=== PATIENT | female | born 1980 | race Caucasian/White ===

== ENCOUNTER 2020-01-07 06:44 | Observation (INO) ==
[2020-01-07 08:56] LABS: Basophils % 0.2 %; Hematocrit 30.2 % (35.3-44.9); Hemoglobin 9.9 g/dL (11.5-15.4); Immature Granulocytes % 0.5 % (0-4); Lymphocytes # 0.9 K/mcL (0.6-4.6); Lymphocytes % 5.6 %; Mean Corpuscular HGB Conc 32.8 g/dL (31.6-35.5); Mean Corpuscular Hemoglobin 31.6 pg (28.0-33.3); Mean Corpuscular Volume 96.5 fL (83.0-100.0); Mean Platelet Volume 8.4 fL (9.4-12.4); Monocytes # 0.4 K/mcL (0.0-1.3); Monocytes % 2.1 %; Neutrophils # 15.2 K/mcL (1.6-8.9); Platelet Count 261 K/mcL (140-400); Red Blood Count 3.13 M/mcL (3.82-4.97); Red Cell Distribution Width 13.1 % (11.5-14.5); Segmented Neutrophils % 91.6 %; White Blood Count 16.6 K/mcL (4.3-11.1)
== END 2020-01-07 11:41 | disposition home or self-care (01) ==
LOC: 1NENULAB
PROVIDERS: ADMIT Student in an Organized Health Care Education/Training Program; ATTEND Student in an Organized Health Care Education/Training Program

== ENCOUNTER 2020-01-11 14:19 | Observation (INO) ==
[2020-01-11] MEDS ORDERED: Ringers Solution, Lactated 1,000 ML IVC SCH (14:45)
[2020-01-11 15:31] VITALS: BP 122/64
[2020-01-11] MEDS ORDERED: *HR* HYDROmorphone PF 0.5 MG/0.5 ML SYRINGE IVP PRN (15:37)
[2020-01-11] MEDS ORDERED: Ondansetron 4 MG/2 ML VIAL IVP PRN (15:37)
[2020-01-11] MEDS ORDERED: *HR* Midazolam HCl 2 MG/2 ML VIAL ONE (15:41)
[2020-01-11] MEDS ORDERED: Dexamethasone 4 MG/ML VIAL ONE (15:41)
[2020-01-11] MEDS ORDERED: Ondansetron 4 MG/2 ML VIAL ONE (15:41)
[2020-01-11] MEDS ORDERED: *HR* FentaNYL (PF) 250 MCG/5 ML VIAL ONE (15:41)
[2020-01-11] MEDS ORDERED: Lidocaine -MPF 2% 5 ML VIAL ONE (15:41)
[2020-01-11] MEDS ORDERED: *HR* Propofol 200 MG/20 ML VIAL IVP ONE (15:41)
[2020-01-11 15:42] LABS: Eosinophils % 2.3 %; Hemoglobin 11.2 g/dL (11.5-15.4); Immature Granulocytes % 1.7 % (0-4); Lymphocytes % 26.1 %; Mean Corpuscular HGB Conc 32.9 g/dL (31.6-35.5); Mean Corpuscular Volume 94.2 fL (83.0-100.0); Mean Platelet Volume 8.2 fL (9.4-12.4); Platelet Count 370 K/mcL (140-400); Red Blood Count 3.61 M/mcL (3.82-4.97); Red Cell Distribution Width 13.1 % (11.5-14.5); Segmented Neutrophils % 64.5 %; White Blood Count 11.7 K/mcL (4.3-11.1)
[2020-01-11 15:43] LABS: Basophils # 0.1 K/mcL (0.0-0.2); Basophils % 0.4 %; Eosinophils # 0.3 K/mcL (0.0-0.6); Lymphocytes # 3.1 K/mcL (0.6-4.6); Monocytes # 0.6 K/mcL (0.0-1.3); Neutrophils # 7.5 K/mcL (1.6-8.9)
[2020-01-11 17:03] LABS: Adenovirus Not Detected (Not Detect); Coronavirus 229E Not Detected (Not Detect); Coronavirus HKU1 Not Detected (Not Detect); Coronavirus NL63 Not Detected (Not Detect); Coronavirus OC43 Not Detected (Not Detect); Human Metapneumovirus Not Detected (Not Detect); Human Rhinovirus/Enterovirus DETECTED (Not Detect); SARS-CoV-2 Not Detected (Not Detect)
[2020-01-11 17:04] LABS: Bordetella Pertussis Not Detected (Not Detect); Chlamydophila pneumoniae Not Detected (Not Detect); Influenza A Subtype 2009 H1 Not Detected (Not Detect); Influenza B Not Detected (Not Detect); Mycoplasma pneumoniae Not Detected (Not Detect); Parainfluenza Virus 1 Not Detected (Not Detect); Parainfluenza Virus 2 Not Detected (Not Detect); Parainfluenza Virus 3 Not Detected (Not Detect); Parainfluenza Virus 4 Not Detected (Not Detect); Respiratory Syncytial Virus Not Detected (Not Detect)
[2020-01-11] MEDS ORDERED: Ibuprofen 600 MG TABLET PO PRN (18:21)
== END 2020-01-11 19:16 | disposition home or self-care (01) ==
LOC: 1NENULAB
PROVIDERS: ADMIT Obstetrics & Gynecology; ATTEND Obstetrics & Gynecology

== ENCOUNTER 2021-04-30 10:23 | Observation (INO) ==
[2021-04-30] MEDS ORDERED: Ringers Solution, Lactated 1,000 ML ONE ×2 (10:58→12:09)
[2021-04-30] MEDS ORDERED: Doxycycline 200 MG in 0.9 % Sodium Chloride Mini Bag 100 ML IVPB ONE (11:03)
[2021-04-30] MEDS ORDERED: Doxycycline 200 MG in 0.9 % Sodium Chloride 100 ML IVPB ONE (11:30)
[2021-04-30] MEDS ORDERED: *HR* OxyCODONE Immed Rel 5 MG TABLET PO PRN (11:56)
[2021-04-30] MEDS ORDERED: *HR* HYDROmorphone PF 0.5 MG/0.5 ML SYRINGE IVP PRN (11:56)
[2021-04-30] MEDS ORDERED: Promethazine 6.25 MG in Water for inj. (sterile) 20 ML IVPB PRN (11:56)
[2021-04-30] MEDS ORDERED: Ondansetron 4 MG/2 ML VIAL ONE (11:59)
[2021-04-30] MEDS ORDERED: Lidocaine -MPF 2% 5 ML VIAL ONE (11:59)
[2021-04-30] MEDS ORDERED: *HR* Midazolam HCl 2 MG/2 ML VIAL ONE ×2 (12:00→13:59)
[2021-04-30] MEDS ORDERED: *HR* Propofol 200 MG/20 ML VIAL IVP ONE (12:00)
[2021-04-30] MEDS ORDERED: *HR* HYDROMORPHONE 2 MG/ML VIAL ONE (12:00)
[2021-04-30 12:52] LABS: Influenza A PCR Negative (Negative); Influenza B PCR Negative (Negative); Resp. Syncytial Virus PCR Negative (Negative)
[2021-04-30 13:08] LABS: Basophils % 0.3 %; Eosinophils # 0.2 K/mcL (0.0-0.6); Eosinophils % 3.4 %; Hematocrit 45.6 % (35.3-44.9); Immature Granulocytes % 0.5 % (0-4); Lymphocytes # 1.5 K/mcL (0.6-4.6); Lymphocytes % 22.9 %; Mean Corpuscular HGB Conc 35.1 g/dL (31.6-35.5); Mean Corpuscular Hemoglobin 32.7 pg (28.0-33.3); Mean Corpuscular Volume 93.1 fL (83.0-100.0); Mean Platelet Volume 8.7 fL (9.4-12.4); Monocytes # 0.4 K/mcL (0.0-1.3); Monocytes % 6.5 %; Neutrophils # 4.3 K/mcL (1.6-8.9); Platelet Count 258 K/mcL (140-400); Red Cell Distribution Width 12.7 % (11.5-14.5); Segmented Neutrophils % 66.4 %; White Blood Count 6.5 K/mcL (4.3-11.1)
[2021-04-30 13:35] LABS: SARS-CoV-2 by PCR (In House) Negative (Negative)
[2021-04-30] MEDS ORDERED: Acetaminophen IV 1,000 MG/100 ML BAG IVPB ONE (14:07)
[2021-04-30] MEDS ORDERED: Ketorolac 30 MG/ML VIAL ONE (14:35)
[2021-04-30] MEDS ORDERED: *HR* Belladonna Alkaloids/Opium 30 MG RECTAL SUPPOSITORY RC ONE ×2 (14:35→14:45)
[2021-04-30] MEDS ORDERED: *HR* OxyCODONE Immed Rel 5 MG TABLET PO ONE (14:47)
[2021-04-30 16:47] VITALS: O2SAT 97
[2021-04-30 17:01] VITALS: BP 97/47; PULSE 90; TEMP 97.9
[2021-04-30] MEDS ORDERED: Methylergonovine 0.2 MG/ML AMPUL IM ONE (17:04)
== END 2021-04-30 17:05 | disposition home or self-care (01) ==
LOC: 1NENULAB 10:23 → SAMDAY 10:23
PROVIDERS: ADMIT Obstetrics & Gynecology; ATTEND Obstetrics & Gynecology